=== PATIENT | female | born 1965 ===

== ENCOUNTER 2016-09-28 09:37 | Emergency (ER) | payer OTHER ==
[2016-09-28 09:55] VITALS: BMI 25.4
--- NOTE | 2016-09-28 10:31 | ED PDOC ---
HPI: General Adult Time Seen by Provider: 09/28/16 10:05 Chief Complaint (Nursing): Back Pain Chief Complaint (Provider): Body pain History Per: Patient History/Exam Limitations: no limitations Onset/Duration Of Symptoms: Days (x1 week) Current Symptoms Are (Timing): Still Present Additional Complaint(s): 51 y/o female with a past medical of lupus disease presents to the emergency department with diffuse body aches throughout the body x1 week, has had same pain prior, took Tylenol without relief. Denies fever, CP, SOB, trauma, paresthesias, weakness. Of note, patient has appointment with Account Executive on October 16, 2016. Past Medical History Vital Signs: Last Vital Signs Temp Pulse Resp BP Pulse Ox 98 09/28/16 13:45 - Medical History PMH: Anemia, Anxiety, Arthritis, CHF, Gastritis, HTN, Hypothyroidism, Malignancy (uterine cancer ), Rheumatoid Arthritis Denies: HIV, Chronic Kidney Disease Other PMH: Lupus - Surgical History Surgical History: Cholecystectomy Other surgeries: Right pleural effusion in 02/2016 - Family History Family History: States: Unknown Family Hx - Social History Current smoker - smoking cessation education provided: No Alcohol: None Drugs: Denies - Home Medications Home Medications: Ambulatory Orders Medication Instructions Recorded Acetaminophen with Codeine 1 tab PO Q6H PRN #10 tab 09/28/16 [Tylenol with Codeine No. 3 300 mg-30 mg] Naproxen [Naprosyn] 500 mg PO BID PRN #15 tablet 09/28/16 - Allergies Allergies/Adverse Reactions: Allergies Allergy/AdvReac Type Severity Reaction Status Date / Time No Known Allergies Allergy Verified 06/23/16 11:53 Review of Systems ROS Statement: Except As Marked, All Systems Reviewed And Found Negative Musculoskeletal: Positive for: Neck Pain, Shoulder Pain, Arm Pain, Back Pain, Hand Pain (Right sided ) Physical Exam - Reviewed Nursing Documentation Reviewed: Yes Vital Signs Reviewed: Yes - Physical Exam Appears: Positive for: Non-toxic, No Acute Distress Head Exam: Positive for: ATRAUMATIC, NORMOCEPHALIC Skin: Positive for: Normal Color, Warm, Dry Cardiovascular/Chest: Positive for: Regular Rate, Rhythm. Negative for: Murmur Respiratory: Positive for: Normal Breath Sounds. Negative for: Accessory Muscle Use, Respiratory Distress Gastrointestinal/Abdominal: Positive for: Normal Exam, Soft. Negative for: Tenderness Back: Positive for: Other (Back pain) Extremity: Positive for: Normal ROM Neurologic/Psych: Positive for: Alert, Oriented - Laboratory Results Result Diagrams: 09/28/16 10:52 09/28/16 10:52 - ECG O2 Sat by Pulse Oximetry: 98 (RA) Pulse Ox Interpretation: Normal Medical Decision Making Medical Decision Making: Time: 10:05 Initial impression: Diffuse body aches Initial plan: --COMP Metabolic Panel --CBC w/ differential --Chest Two Views (PA/LAT) (RAD) --Morphine 2 mg IV Stat --Revaluation [place] checked, one Rx for Oxycodeine #10 on 08/27/16. Discussed with patient to take Naprosyn and then Tylenol #3 only if pain not relieved with Naprosyn, risks of opioids discussed. Scribe Attestation: Documented by Elke Wright, acting as a scribe for Ave Diaz MD. Provider Scribe Attestation: All medical record entries made by the Scribe were at my direction and personally dictated by me. I have reviewed the chart and agree that the record accurately reflects my personal performance of the history, physical exam, medical decision making, and the department course for this patient. I have also personally directed, reviewed, and agree with the discharge instructions and disposition. Disposition - Clinical Impression Clinical Impression: Chronic pain - Patient ED Disposition Is Patient to be Admitted: No - Disposition Referrals: [facility] [Outside] Disposition: Routine/Home Disposition Time: 15:00 Condition: IMPROVED Prescriptions: Acetaminophen with Codeine [Tylenol with Codeine No. 3 300 mg-30 mg] 1 tab PO Q6H PRN #10 tab PRN Reason: Pain, Severe (8-10) Naproxen [Naprosyn] 500 mg PO BID PRN #15 tablet PRN Reason: Pain, Moderate (4-7) Instructions: Chronic Pain (ED) Print Language: [place]
[2016-09-28 10:38] VITALS: O2SAT 98
[2016-09-28 11:01] LABS: BASO % 1.1 % (0.0-2.0); HEMATOCRIT 26.8 % (34.0-47.0); LYMPH # 0.4 K/uL (1.0-4.3); LYMPH % 15.1 % (20.0-40.0); MEAN CORPUSCULAR HEMOGLOBIN 27.5 pg (27.0-31.0); MEAN CORPUSCULAR HGB CONC 31.8 g/dL (33.0-37.0); MEAN PLATELET VOLUME 10.1 fl (7.2-11.7); MONO # 0.3 K/uL (0.0-0.8); MONO % 8.8 % (0.0-10.0); NEUT # 2.2 K/uL (1.8-7.0); NRBC % 0.2 % (0.0-0.0); RED CELL DISTRIBUTION WIDTH 24.5 % (11.5-14.5)
[2016-09-28 11:04] LABS: MEAN CELL VOLUME 86.7 fl (81.0-99.0)
[2016-09-28 11:13] LABS: CHLORIDE 111 mmol/L (98-107); POTASSIUM 4.6 MMOL/L (3.6-5.0); SODIUM 140 mmol/l (132-148)
[2016-09-28 11:15] LABS: GFR AFRICAN-AMERICAN > 60
[2016-09-28 11:16] LABS: ALB/GLOB RATIO 0.8 (1.0-2.1); ALKALINE PHOSPHATASE 145 U/L (38-126); ALT/SGPT 41 U/L (9-52); AST/SGOT 46 U/L (14-36); BILIRUBIN,TOTAL 0.5 mg/dl (0.2-1.3); BLOOD UREA NITROGEN 10 mg/dl (7-17); CALCIUM 8.5 mg/dL (8.4-10.2); CARBON DIOXIDE 19 mmol/L (22-30); GLUCOSE,RANDOM 81 mg/dL (65-105); TOTAL PROTEIN 7.7 G/DL (6.3-8.2)
[2016-09-28] MEDS ORDERED: Sodium Chloride 0.9% 1,000 ML IV STA (11:33)
--- NOTE | 2016-09-28 13:52 | RAD ---
HISTORY: Generalized pain COMPARISON: Comparison is made to the previous study dated 06/06/2016 TECHNIQUE: Chest PA and lateral FINDINGS: LUNGS: No evidence of new infiltrate or consolidation in the lungs. Linear opacity is again seen at the right lung. PLEURA: Blunting of the right costophrenic angle is again noted. CARDIOVASCULAR: Normal. OSSEOUS STRUCTURES: No significant abnormalities. VISUALIZED UPPER ABDOMEN: Normal. OTHER FINDINGS: None. IMPRESSION: No significant interval change since the previous exam.
== END 2016-09-28 15:14 | disposition home or self-care (01) ==
LOC: H.ER 09:37
DX: G89.29 Other chronic pain (principal); F41.9 Anxiety disorder, unspecified; I10 Essential (primary) hypertension; M06.9 Rheumatoid arthritis, unspecified; M32.9 Systemic lupus erythematosus, unspecified; Z85.42 Personal history of malignant neoplasm of other parts of uterus